=== PATIENT | female | born 1980 | race Caucasian/White ===

== ENCOUNTER → 2020-11-24 | Outpatient (CLI) | payer OTHER | LOC: EMI 10-25 15:00 | DX: D49.6 Neoplasm of unspecified behavior of brain (principal) | CPT/HCPCS: 70553; A9577 ==

== ENCOUNTER → 2021-11-07 | Outpatient (CLI) | payer OTHER | LOC: EMI 10-27 09:00 | DX: D49.6 Neoplasm of unspecified behavior of brain (principal); G93.89 Other specified disorders of brain | CPT/HCPCS: 70553; A9577 ==